=== PATIENT | male | born 1960 | race Caucasian/White ===

== ENCOUNTER 2018-05-31 12:19 | Observation (INO) ==
[2018-05-31] MEDS ORDERED: methylPREDNISolone SOD SUC 125 MG/2 ML VIAL IV STA (12:54)
[2018-05-31] MEDS ORDERED: ONDANSETRON 4 MG/2 ML VIAL IV STA (12:54)
[2018-05-31] MEDS ORDERED: MORPHINE 4 MG/1 ML VIAL IV STA (12:54)
[2018-05-31] MEDS ORDERED: ALBUTEROL NEB SOLN 5 MG/ML 20 ML/BOTTLE RESP TX SCH (13:00)
[2018-05-31 13:12] LABS: Basophils % 0.8 % (0.0-0.8); Eosinophils # 0.1 10*3/uL (0.0-0.87); Hematocrit 26.7 VOL% (42.0-52.0); Hemoglobin 8.8 GM/DL (14.0-18.0); Immature Granulocytes % 0.4 %; Immature Granulocytes Absolute 0.01 #; Lymphocytes # 0.3 10*3/uL (1.4-4.0); Lymphocytes % 13.1 % (21.2-54.2); Mean Corpuscular Hemoglobin 31 PG (27-34); Mean Platelet Volume 9.5 FL (9.6-12.0); Monocytes # 0.5 10*3/uL (0.11-0.8); Monocytes % 20.3 % (1.7-12.7); Neutrophils # 1.5 10*3/uL (1.4-7.4); Neutrophils % 61.4 % (38.7-73.9); Platelet Count 104 T/CUMM (130-400); Red Blood Count 2.84 MC/CUMM (3.8-5.5); Red Cell Distribution Width 13.5 % (9.3-17.3); White Blood Count 2.5 T/CUMM (4-12)
[2018-05-31 13:16] LABS: PT Patient Result 10.6 SECS
[2018-05-31 13:26] LABS: Alanine Aminotransferase < 9 U/L (16-61); Albumin 3.2 G/DL (3.4-5.0); Alkaline Phosphatase 124 U/L (45-117); Aspartate Amino Transferase 21 U/L (0-37); Blood Urea Nitrogen 65 MG/DL (7-18); Calcium 8.6 MG/DL (8.5-10.1); Glucose 85 MG/DL (74-106); Osmolality,Calculated 287.1 MOS/KG (273-304); Potassium 5.7 MMOL/L (3.5-5.1); Sodium 135 MMOL/L (136-145)
[2018-05-31 14:24] LABS: Eosinophils 4 % (0-10); Lymphocytes 13 % (20-55); Platelet Estimate Decreased; Segmented Neutrophils 65 % (50-85); Total Cells Counted 100
[2018-05-31] MEDS ORDERED: ONDANSETRON 4 MG/2 ML VIAL IV PRN (15:43)
[2018-05-31] MEDS ORDERED: ALBUTEROL/IPRATROPIUM 3 ML NEB RESP TX PRN (15:43)
[2018-05-31] MEDS ORDERED: ACETAMINOPHEN 325 MG TABLET PO PRN (15:43)
[2018-05-31] MEDS ORDERED: SODIUM CHLORIDE 0.9% 1,000 ML IV SCH (15:43)
[2018-05-31] MEDS ORDERED: MORPHINE 4 MG/1 ML VIAL IV PRN (15:43)
[2018-05-31] MEDS: CALCIUM ACETATE 667 MG CAPSULE PO SCH ×2 (16:03→21:53)
[2018-05-31] MEDS: CLINDAMYCIN 300 MG CAPSULE PO SCH (16:03)
[2018-05-31] MEDS ORDERED: cloNIDine 0.1 MG TABLET PO PRN (17:02)
[2018-05-31] MEDS: CARBIDOPA/LEVODOPA 25-100 MG TABLET PO SCH ×2 (17:02→21:53)
[2018-05-31 20:21] LABS: Hypochromasia 1+; Ovalocytes Few
[2018-05-31 20:22] LABS: Anisocytosis 1+
[2018-05-31] MEDS: DOCUSATE SODIUM 100 MG CAPSULE PO SCH (21:53)
[2018-06-01] MEDS: CLINDAMYCIN 300 MG CAPSULE PO SCH ×4 (00:02→23:14)
[2018-06-01 04:24] LABS: Hematocrit 26.5 VOL% (42.0-52.0); Hemoglobin 8.7 GM/DL (14.0-18.0); Lymphocytes # 0.2 10*3/uL (1.4-4.0); Lymphocytes % 10.4 % (21.2-54.2); Mean Corpuscular HGB Conc 32.8 GM/DL (32-36); Mean Corpuscular Hemoglobin 31 PG (27-34); Mean Corpuscular Volume 94.3 FL (87-102); Mean Platelet Volume 9.8 FL (9.6-12.0); Neutrophils # 1.8 10*3/uL (1.4-7.4); Neutrophils % 87.6 % (38.7-73.9); Red Blood Count 2.81 MC/CUMM (3.8-5.5); Red Cell Distribution Width 12.9 % (9.3-17.3)
[2018-06-01 04:27] LABS: Platelet Count 95 T/CUMM (130-400)
[2018-06-01 05:02] LABS: Alanine Aminotransferase < 9 U/L (16-61); Albumin 3.1 G/DL (3.4-5.0); Alkaline Phosphatase 127 U/L (45-117); Aspartate Amino Transferase 18 U/L (0-37); Blood Urea Nitrogen 75 MG/DL (7-18); Calcium 8.8 MG/DL (8.5-10.1); Glucose 145 MG/DL (74-106); Osmolality,Calculated 290.4 MOS/KG (273-304); Sodium 133 MMOL/L (136-145); Total Protein 6.4 G/DL (6.4-8.3)
[2018-06-01 05:08] LABS: Platelet Estimate Decreased
[2018-06-01 05:09] LABS: Polychromasia Few
[2018-06-01 05:13] LABS: Potassium 6.6 MMOL/L (3.5-5.1)
[2018-06-01] MEDS ORDERED: PANTOPRAZOLE 40 MG TABLET PO SCH (09:00)
[2018-06-01] MEDS: DOCUSATE SODIUM 100 MG CAPSULE PO SCH ×2 (09:44→21:10)
[2018-06-01] MEDS: PANTOPRAZOLE 40 MG TABLET PO SCH (09:44)
[2018-06-01] MEDS: CARBIDOPA/LEVODOPA 25-100 MG TABLET PO SCH ×4 (09:44→21:11)
[2018-06-01] MEDS: CALCIUM ACETATE 667 MG CAPSULE PO SCH ×3 (09:44→21:11)
[2018-06-01 14:26] LABS: Hepatitis B Surface Ab Result Negative; Hepatitis B Surface Ag Quant < 0.10 Index; Hepatitis B Surface Ag Result Negative (Negative)
[2018-06-01] MEDS ORDERED: HEPARIN 10,000 UNIT/10 ML VIAL IV PRN (15:50)
[2018-06-02] MEDS: BENZONATATE 100 MG CAPSULE PO SCH ×3 (02:35→20:26)
[2018-06-02] MEDS: ALBUTEROL/IPRATROPIUM 3 ML NEB RESP TX SCH ×2 (06:57→19:00)
[2018-06-02 09:41] LABS: Basophils % 0.4 % (0.0-0.8); Eosinophils % 0.8 % (0.00-10.9); Hematocrit 28.2 VOL% (42.0-52.0); Hemoglobin 9.1 GM/DL (14.0-18.0); Immature Granulocytes % 0.6 %; Immature Granulocytes Absolute 0.03 #; Lymphocytes # 0.4 10*3/uL (1.4-4.0); Lymphocytes % 7.6 % (21.2-54.2); Mean Corpuscular HGB Conc 32.3 GM/DL (32-36); Mean Corpuscular Hemoglobin 31 PG (27-34); Mean Corpuscular Volume 95.9 FL (87-102); Mean Platelet Volume 9.6 FL (9.6-12.0); Monocytes # 0.5 10*3/uL (0.11-0.8); Monocytes % 9.5 % (1.7-12.7); Neutrophils # 4.3 10*3/uL (1.4-7.4); Neutrophils % 81.1 % (38.7-73.9); Platelet Count 114 T/CUMM (130-400); Red Blood Count 2.94 MC/CUMM (3.8-5.5); Red Cell Distribution Width 13.5 % (9.3-17.3); White Blood Count 5.2 T/CUMM (4-12)
[2018-06-02 09:56] LABS: Calcium 8.6 MG/DL (8.5-10.1); Osmolality,Calculated 286.1 MOS/KG (273-304); Potassium 4.9 MMOL/L (3.5-5.1)
[2018-06-02] MEDS: CARBIDOPA/LEVODOPA 25-100 MG TABLET PO SCH ×4 (10:31→20:26)
[2018-06-02] MEDS: CALCIUM ACETATE 667 MG CAPSULE PO SCH ×3 (10:31→20:26)
[2018-06-02] MEDS: DOCUSATE SODIUM 100 MG CAPSULE PO SCH ×2 (10:31→20:26)
[2018-06-02] MEDS: CLINDAMYCIN 300 MG CAPSULE PO SCH ×3 (10:31→23:51)
[2018-06-02] MEDS: PANTOPRAZOLE 40 MG TABLET PO SCH (10:31)
[2018-06-02] MEDS: SKIN HEALING OINT (AQUAPHOR) 50 GM TUBE TOP SCH (12:18)
[2018-06-02] MEDS: BUDESONIDE/FORMOTEROL 160-4.5 INHALER 6 GM INH SCH ×2 (13:29→20:26)
[2018-06-02] MEDS ORDERED: guaiFENesin 200 MG/10 ML UDCUP PO PRN (21:40)
[2018-06-03] MEDS: ALBUTEROL/IPRATROPIUM 3 ML NEB RESP TX SCH (07:15)
[2018-06-03] MEDS: DOCUSATE SODIUM 100 MG CAPSULE PO SCH (09:39)
[2018-06-03] MEDS: CALCIUM ACETATE 667 MG CAPSULE PO SCH ×2 (09:39→14:01)
[2018-06-03] MEDS: BENZONATATE 100 MG CAPSULE PO SCH (09:39)
[2018-06-03] MEDS: PANTOPRAZOLE 40 MG TABLET PO SCH (09:39)
[2018-06-03] MEDS: CARBIDOPA/LEVODOPA 25-100 MG TABLET PO SCH ×3 (09:39→17:50)
[2018-06-03] MEDS: CLINDAMYCIN 300 MG CAPSULE PO SCH ×2 (09:39→17:50)
[2018-06-03] MEDS: BUDESONIDE/FORMOTEROL 160-4.5 INHALER 6 GM INH SCH (09:40)
[2018-06-03] MEDS: SKIN HEALING OINT (AQUAPHOR) 50 GM TUBE TOP SCH (09:40)
[2018-06-03] MEDS ORDERED: cefTRIAXone 1,000 MG in SYRINGE 1 EACH IV ONE (14:00)
[2018-06-03] MEDS: guaiFENesin/CODEINE 5 ML LIQUID PO PRN ×2 (14:00→17:50)
[2018-06-03 17:53] VITALS: BP 92/55
== END 2018-06-03 17:52 | disposition home health service (06) ==
LOC: EDUNIT# → EDBD → N.EDINP 12:19 → N.ED 12:19 → N.3E 15:03
PROVIDERS: ADMIT Family Medicine; ATTEND Family Medicine

== ENCOUNTER 2018-12-18 18:56 | Inpatient (IN) ==
[2018-12-18 20:38] LABS: Basophils % 0.7 % (0.0-0.8); Eosinophils # 0.1 10*3/uL (0.0-0.87); Eosinophils % 2.6 % (0.00-10.9); Hematocrit 30.7 VOL% (42.0-52.0); Hemoglobin 9.7 GM/DL (14.0-18.0); Immature Granulocytes % 0.4 %; Immature Granulocytes Absolute 0.01 #; Lymphocytes # 0.7 10*3/uL (1.4-4.0); Mean Corpuscular HGB Conc 31.6 GM/DL (32-36); Mean Corpuscular Volume 98.7 FL (87-102); Mean Platelet Volume 8.9 FL (9.6-12.0); Monocytes % 18.5 % (1.7-12.7); Neutrophils % 53.8 % (38.7-73.9); Platelet Count 105 T/CUMM (130-400); Red Blood Count 3.11 MC/CUMM (3.8-5.5); Red Cell Distribution Width 14.6 % (9.3-17.3); White Blood Count 2.7 T/CUMM (4-12)
[2018-12-18 20:59] LABS: Alanine Aminotransferase < 9 U/L (16-61); Albumin 3.1 G/DL (3.4-5.0); Alkaline Phosphatase 100 U/L (45-117); Aspartate Amino Transferase 16 U/L (0-37); Blood Urea Nitrogen 18 MG/DL (7-18); Calcium 9.8 MG/DL (8.5-10.1); Glucose 112 MG/DL (74-106); Osmolality,Calculated 277.7 MOS/KG (273-304); Total Protein 6.6 G/DL (6.4-8.3)
[2018-12-18 22:18] LABS: Eosinophils 5 % (0-10); Lymphocytes 31 % (20-55); Segmented Neutrophils 54 % (50-85); Total Cells Counted 100
[2018-12-18 22:19] LABS: Anisocytosis 1+; Hypochromasia 1+; Microcytosis 1+; Platelet Estimate Decreased; Polychromasia 1+
[2018-12-18] MEDS ORDERED: VANCOMYCIN INJ 1,000 MG in SODIUM CHLORIDE 0.9% 250 ML IV STA (22:54)
[2018-12-18] MEDS ORDERED: ONDANSETRON 4 MG/2 ML VIAL IV PRN (22:55)
[2018-12-19 01:53] LABS: Basophils % 1.2 % (0.0-0.8); Eosinophils # 0.1 10*3/uL (0.0-0.87); Eosinophils % 2.9 % (0.00-10.9); Hematocrit 29.4 VOL% (42.0-52.0); Hemoglobin 9.5 GM/DL (14.0-18.0); Immature Granulocytes % 0.4 %; Immature Granulocytes Absolute 0.01 #; Lymphocytes # 0.5 10*3/uL (1.4-4.0); Lymphocytes % 20.9 % (21.2-54.2); Mean Corpuscular HGB Conc 32.3 GM/DL (32-36); Mean Platelet Volume 9.3 FL (9.6-12.0); Monocytes % 18.4 % (1.7-12.7); Neutrophils % 56.2 % (38.7-73.9); Platelet Count 106 T/CUMM (130-400); Red Blood Count 2.94 MC/CUMM (3.8-5.5); Red Cell Distribution Width 14.5 % (9.3-17.3); White Blood Count 2.4 T/CUMM (4-12)
[2018-12-19 02:14] LABS: Bilirubin,Total 0.6 MG/DL (0.2-1.0); Calcium 9.6 MG/DL (8.5-10.1); Osmolality,Calculated 283.4 MOS/KG (273-304); Total Protein 6.2 G/DL (6.4-8.3)
[2018-12-19 03:04] LABS: Anisocytosis 1+; Band Neutrophils 1 % (0-10); Eosinophils 3 % (0-10); Hypochromasia 1+; Lymphocytes 21 % (20-55); Microcytosis 1+; Platelet Estimate Decreased; Segmented Neutrophils 66 % (50-85); Smudge Cells Few; Total Cells Counted 100
[2018-12-19] MEDS ORDERED: VANCOMYCIN INJ 1,000 MG in SODIUM CHLORIDE 0.9% 250 ML IV PRN (16:00)
[2018-12-20 05:27] LABS: Basophils % 0.6 % (0.0-0.8); Eosinophils # 0.1 10*3/uL (0.0-0.87); Hematocrit 29.3 VOL% (42.0-52.0); Hemoglobin 9.3 GM/DL (14.0-18.0); Immature Granulocytes % 0.3 %; Immature Granulocytes Absolute 0.01 #; Lymphocytes # 0.6 10*3/uL (1.4-4.0); Lymphocytes % 18.2 % (21.2-54.2); Mean Corpuscular HGB Conc 31.7 GM/DL (32-36); Mean Platelet Volume 9.3 FL (9.6-12.0); Monocytes % 14.2 % (1.7-12.7); Neutrophils % 62.7 % (38.7-73.9); Platelet Count 111 T/CUMM (130-400); Red Blood Count 2.96 MC/CUMM (3.8-5.5); Red Cell Distribution Width 14.5 % (9.3-17.3); White Blood Count 3.3 T/CUMM (4-12)
[2018-12-20] MEDS ORDERED: VANCOMYCIN INJ 750 MG in SODIUM CHLORIDE 0.9% 250 ML IV PRN (08:38)
[2018-12-20] MEDS ORDERED: VANCOMYCIN INJ 1,000 MG in SODIUM CHLORIDE 0.9% 250 ML IV ONE (09:00)
[2018-12-20] MEDS ORDERED: TETANUS IMMUNE GLOBULIN 250 UNIT SYRINGE IM ONE (13:20)
[2018-12-20] MEDS ORDERED: cloNIDine 0.1 MG TABLET PO PRN (15:58)
[2018-12-20] MEDS ORDERED: ALBUTEROL/IPRATROPIUM 3 ML NEB RESP TX PRN (15:58)
[2018-12-20] MEDS: CARBIDOPA/LEVODOPA 25-100 MG TABLET PO SCH ×2 (16:05→23:46)
[2018-12-20] MEDS: BUDESONIDE/FORMOTEROL 160-4.5 INHALER 6 GM INH SCH (23:45)
[2018-12-20] MEDS: CALCIUM ACETATE 667 MG CAPSULE PO SCH (23:46)
[2018-12-20] MEDS: MENTHOL/ZINC OXIDE OINT 71 GM JAR TOP SCH (23:46)
[2018-12-21 05:05] LABS: Basophils # 0.1 10*3/uL (0.0-0.2); Basophils % 1.4 % (0.0-0.8); Eosinophils # 0.1 10*3/uL (0.0-0.87); Hematocrit 29.1 VOL% (42.0-52.0); Hemoglobin 9.3 GM/DL (14.0-18.0); Immature Granulocytes % 0.6 %; Immature Granulocytes Absolute 0.02 #; Lymphocytes # 0.6 10*3/uL (1.4-4.0); Lymphocytes % 16.5 % (21.2-54.2); Mean Corpuscular Volume 98.3 FL (87-102); Mean Platelet Volume 9.7 FL (9.6-12.0); Monocytes % 13.3 % (1.7-12.7); Neutrophils % 64.2 % (38.7-73.9); Platelet Count 121 T/CUMM (130-400); Red Blood Count 2.96 MC/CUMM (3.8-5.5); Red Cell Distribution Width 14.2 % (9.3-17.3); White Blood Count 3.5 T/CUMM (4-12)
[2018-12-21 05:35] LABS: Hypochromasia 1+; Ovalocytes Slight; Platelet Estimate Decreased
[2018-12-21 05:36] LABS: Microcytosis Slight
[2018-12-21] MEDS: CALCIUM ACETATE 667 MG CAPSULE PO SCH ×3 (08:05→21:45)
[2018-12-21] MEDS: MENTHOL/ZINC OXIDE OINT 71 GM JAR TOP SCH ×2 (08:05→21:46)
[2018-12-21] MEDS: CARBIDOPA/LEVODOPA 25-100 MG TABLET PO SCH ×4 (08:05→21:46)
[2018-12-21] MEDS: PANTOPRAZOLE 40 MG TABLET PO SCH (08:05)
[2018-12-21] MEDS: BUDESONIDE/FORMOTEROL 160-4.5 INHALER 6 GM INH SCH ×2 (08:06→21:46)
[2018-12-21] MEDS ORDERED: LIDOCAINE 1% 20 ML VIAL ONE (11:12)
[2018-12-21] MEDS ORDERED: fentaNYL 100 MCG/2 ML VIAL ONE (12:10)
[2018-12-21] MEDS ORDERED: PROPOFOL 200 MG/20 ML VIAL IV ONE (12:10)
[2018-12-21] MEDS ORDERED: MIDAZOLAM 2 MG/2 ML VIAL ONE (12:11)
[2018-12-21] MEDS ORDERED: SODIUM CHLORIDE 0.9% 100 ML IV ONE (12:11)
[2018-12-21] MEDS ORDERED: HEPARIN 10,000 UNIT/10 ML VIAL IV SCH (15:00)
[2018-12-21] MEDS ORDERED: VANCOMYCIN INJ 750 MG in SODIUM CHLORIDE 0.9% 250 ML IV ONE (17:00)
[2018-12-22] MEDS: ACETAMINOPHEN 325 MG TABLET PO PRN ×2 (02:13→16:47)
[2018-12-22 05:08] LABS: Basophils % 1.4 % (0.0-0.8); Eosinophils # 0.1 10*3/uL (0.0-0.87); Eosinophils % 4.8 % (0.00-10.9); Hematocrit 29.7 VOL% (42.0-52.0); Hemoglobin 9.5 GM/DL (14.0-18.0); Immature Granulocytes % 0.3 %; Immature Granulocytes Absolute 0.01 #; Lymphocytes # 0.5 10*3/uL (1.4-4.0); Mean Platelet Volume 9.2 FL (9.6-12.0); Monocytes % 14.6 % (1.7-12.7); Neutrophils % 62.9 % (38.7-73.9); Platelet Count 124 T/CUMM (130-400); Red Cell Distribution Width 14.3 % (9.3-17.3); White Blood Count 2.9 T/CUMM (4-12)
[2018-12-22 05:33] LABS: Calcium 9.8 MG/DL (8.5-10.1); Osmolality,Calculated 294.1 MOS/KG (273-304)
[2018-12-22] MEDS: CARBIDOPA/LEVODOPA 25-100 MG TABLET PO SCH ×4 (08:24→20:47)
[2018-12-22] MEDS: CALCIUM ACETATE 667 MG CAPSULE PO SCH ×3 (08:24→16:47)
[2018-12-22] MEDS: BUDESONIDE/FORMOTEROL 160-4.5 INHALER 6 GM INH SCH ×2 (08:25→20:46)
[2018-12-22] MEDS: PANTOPRAZOLE 40 MG TABLET PO SCH (08:25)
[2018-12-22] MEDS: MENTHOL/ZINC OXIDE OINT 71 GM JAR TOP SCH ×2 (08:25→20:47)
[2018-12-23] MEDS: PANTOPRAZOLE 40 MG TABLET PO SCH (09:01)
[2018-12-23] MEDS: MENTHOL/ZINC OXIDE OINT 71 GM JAR TOP SCH ×2 (09:01→21:28)
[2018-12-23] MEDS: CARBIDOPA/LEVODOPA 25-100 MG TABLET PO SCH ×4 (09:01→21:28)
[2018-12-23] MEDS: CALCIUM ACETATE 667 MG CAPSULE PO SCH ×3 (09:01→17:12)
[2018-12-23] MEDS: BUDESONIDE/FORMOTEROL 160-4.5 INHALER 6 GM INH SCH ×2 (13:43→21:28)
[2018-12-23] MEDS ORDERED: TUBERCULIN SKIN TEST 0.1 ML SYRINGE INTRADERM ONE (17:00)
[2018-12-23] MEDS ORDERED: VANCOMYCIN INJ 750 MG in SODIUM CHLORIDE 0.9% 250 ML IV ONE (17:00)
[2018-12-24 07:24] LABS: Basophils % 1.1 % (0.0-0.8); Eosinophils # 0.1 10*3/uL (0.0-0.87); Eosinophils % 4.4 % (0.00-10.9); Hematocrit 29.2 VOL% (42.0-52.0); Hemoglobin 9.3 GM/DL (14.0-18.0); Immature Granulocytes % 0.7 %; Immature Granulocytes Absolute 0.02 #; Lymphocytes # 0.6 10*3/uL (1.4-4.0); Lymphocytes % 23.3 % (21.2-54.2); Mean Corpuscular HGB Conc 31.8 GM/DL (32-36); Mean Platelet Volume 9.2 FL (9.6-12.0); Monocytes % 14.4 % (1.7-12.7); Neutrophils % 56.1 % (38.7-73.9); Platelet Count 114 T/CUMM (130-400); Red Blood Count 2.95 MC/CUMM (3.8-5.5); White Blood Count 2.7 T/CUMM (4-12)
[2018-12-24 07:55] LABS: Osmolality,Calculated 294.1 MOS/KG (273-304)
[2018-12-24] MEDS: PANTOPRAZOLE 40 MG TABLET PO SCH (08:12)
[2018-12-24] MEDS: BUDESONIDE/FORMOTEROL 160-4.5 INHALER 6 GM INH SCH (08:12)
[2018-12-24] MEDS: MENTHOL/ZINC OXIDE OINT 71 GM JAR TOP SCH (08:12)
[2018-12-24] MEDS: CALCIUM ACETATE 667 MG CAPSULE PO SCH ×3 (08:12→12:00)
[2018-12-24] MEDS: CARBIDOPA/LEVODOPA 25-100 MG TABLET PO SCH ×2 (08:12→12:01)
[2018-12-24 08:47] VITALS: BP 154/62
[2018-12-24] MEDS: CLINDAMYCIN 300 MG CAPSULE PO SCH ×2 (09:28→12:01)
[2018-12-24] MEDS ORDERED: SODIUM POLYSTYRENE SULFATE 15 GM/60 ML BOTTLE PO STA (11:39)
== END 2018-12-24 14:44 | disposition home health service (06) | DRG 570 ==
LOC: N.ED 18:56 → N.EDINP 22:54 → N.5E 23:27
PROVIDERS: ADMIT Family Medicine; ATTEND Family Medicine

== ENCOUNTER 2020-12-15 19:25 | Inpatient (IN) ==
[2020-12-15 21:49] LABS: Basophils % 0.9 % (0.0-0.8); Eosinophils # 0.1 10*3/uL (0.0-0.87); Eosinophils % 2.7 % (0.00-10.9); Hematocrit 28.8 VOL% (42.0-52.0); Hemoglobin 9.2 GM/DL (14.0-18.0); Immature Granulocytes % 0.3 %; Immature Granulocytes Absolute 0.01 #; Lymphocytes # 0.5 10*3/uL (1.4-4.0); Lymphocytes % 15.2 % (21.2-54.2); Mean Corpuscular HGB Conc 31.9 GM/DL (32-36); Mean Corpuscular Volume 100.7 FL (87-102); Mean Platelet Volume 9.7 FL (9.6-12.0); Monocytes % 12.5 % (1.7-12.7); Neutrophils % 68.4 % (38.7-73.9); Platelet Count 132 T/CUMM (130-400); Red Blood Count 2.86 MC/CUMM (3.8-5.5); Red Cell Distribution Width 13.5 % (9.3-17.3); White Blood Count 3.4 T/CUMM (4-12)
[2020-12-15 22:02] LABS: Albumin 3.1 G/DL (3.4-5.0); Bilirubin,Total 0.5 MG/DL (0.20-1.00); Calcium 8.6 MG/DL (8.5-10.1); Osmolality,Calculated 285.4 MOS/KG (273-304); Potassium 4.3 MMOL/L (3.5-5.1); Total Protein 6.3 G/DL (6.4-8.2)
[2020-12-15] MEDS ORDERED: VANCOMYCIN INJ 1,000 MG in SODIUM CHLORIDE 0.9% 250 ML IV STA (22:37)
[2020-12-15] MEDS ORDERED: MEROPENEM 500 MG in SODIUM CHLORIDE 0.9% 100 ML IV STA (22:40)
[2020-12-15] MEDS ORDERED: MEROPENEM 1,000 MG VIAL ONE (23:29)
[2020-12-16] MEDS ORDERED: ACETAMINOPHEN 500 MG TABLET PO PRN (01:50)
[2020-12-16] MEDS ORDERED: ONDANSETRON 4 MG/2 ML VIAL IV PRN (11:50)
[2020-12-16] MEDS ORDERED: MAGNESIUM HYDROXIDE SUSP 30 ML UDCUP PO PRN (11:50)
[2020-12-16] MEDS ORDERED: ACETAMINOPHEN 325 MG TABLET PO PRN (11:50)
[2020-12-16] MEDS: CARBIDOPA/LEVODOPA 25-100 MG TABLET PO SCH ×3 (12:52→22:25)
[2020-12-16] MEDS ORDERED: VANCOMYCIN INJ 1,500 MG in SODIUM CHLORIDE 0.9% 500 ML IV ONE (14:00)
[2020-12-16] MEDS: methylPREDNISolone SOD SUC 40 MG/1 ML VIAL IV SCH (14:36)
[2020-12-16] MEDS: ALBUTEROL/IPRATROPIUM 3 ML NEB RESP TX SCH ×3 (15:40→23:57)
[2020-12-16] MEDS: INSULIN LISPRO 100 UNIT/ML SUBCUT SCH ×2 (16:47→22:25)
[2020-12-16] MEDS: CALCIUM ACETATE 667 MG CAPSULE PO SCH ×2 (16:50→22:25)
[2020-12-16] MEDS ORDERED: FAMOTIDINE 20 MG TABLET PO SCH (21:00)
[2020-12-16] MEDS: MEROPENEM 500 MG in SODIUM CHLORIDE 0.9% 100 ML IV SCH (22:22)
[2020-12-16] MEDS: BUDESONIDE/FORMOTEROL 160-4.5 INHALER 6 GM INH SCH (22:26)
[2020-12-17] MEDS: methylPREDNISolone SOD SUC 40 MG/1 ML VIAL IV SCH ×2 (00:35→17:18)
[2020-12-17] MEDS: ALBUTEROL/IPRATROPIUM 3 ML NEB RESP TX SCH ×6 (03:15→22:20)
[2020-12-17 05:30] LABS: Basophils % 0.4 % (0.0-0.8); Eosinophils % 0.4 % (0.00-10.9); Hematocrit 28.9 VOL% (42.0-52.0); Hemoglobin 9.1 GM/DL (14.0-18.0); Immature Granulocytes % 0.4 %; Immature Granulocytes Absolute 0.01 #; Lymphocytes # 0.4 10*3/uL (1.4-4.0); Lymphocytes % 15.4 % (21.2-54.2); Mean Corpuscular HGB Conc 31.5 GM/DL (32-36); Mean Corpuscular Volume 103.6 FL (87-102); Mean Platelet Volume 10.5 FL (9.6-12.0); Monocytes % 3.5 % (1.7-12.7); Neutrophils % 79.9 % (38.7-73.9); Platelet Count 116 T/CUMM (130-400); Red Blood Count 2.79 MC/CUMM (3.8-5.5); Red Cell Distribution Width 13.2 % (9.3-17.3); White Blood Count 2.3 T/CUMM (4-12)
[2020-12-17 05:50] LABS: Calcium 8.2 MG/DL (8.5-10.1); Osmolality,Calculated 291.7 MOS/KG (273-304); Risk Ratio 3.88
[2020-12-17 07:03] LABS: Microcytosis 2+; Platelet Estimate Decreased
[2020-12-17] MEDS: INSULIN REGULAR 100 UNIT/ML IV ONE ×2 (08:03→10:23)
[2020-12-17] MEDS: CARBIDOPA/LEVODOPA 25-100 MG TABLET PO SCH ×4 (08:04→21:39)
[2020-12-17] MEDS: CALCIUM ACETATE 667 MG CAPSULE PO SCH ×3 (08:04→17:18)
[2020-12-17] MEDS: DEXTROSE 50% 25 GM/50 ML VIAL IV ONE ×2 (08:04→10:23)
[2020-12-17] MEDS: PANTOPRAZOLE 40 MG TABLET PO SCH (08:04)
[2020-12-17] MEDS: SODIUM POLYSTYRENE SULFATE 15 GM/60 ML BOTTLE PO SCH ×2 (08:04→15:16)
[2020-12-17] MEDS: INSULIN LISPRO 100 UNIT/ML SUBCUT SCH ×4 (08:05→22:27)
[2020-12-17] MEDS: CALCIUM CHLORIDE 1,000 MG in SODIUM CHLORIDE 0.9% 100 ML IV ONE ×2 (08:05→10:23)
[2020-12-17] MEDS: BUDESONIDE/FORMOTEROL 160-4.5 INHALER 6 GM INH SCH ×2 (10:14→22:27)
[2020-12-17] MEDS ORDERED: HEPARIN 10,000 UNIT/10 ML VIAL IV ONE (13:00)
[2020-12-17] MEDS ORDERED: VANCOMYCIN INJ 750 MG in SODIUM CHLORIDE 0.9% 250 ML IV ONE (17:00)
[2020-12-17] MEDS ORDERED: VANCOMYCIN INJ 750 MG in SODIUM CHLORIDE 0.9% 250 ML IV PRN (18:00)
[2020-12-17] MEDS: MEROPENEM 500 MG in SODIUM CHLORIDE 0.9% 100 ML IV SCH (21:38)
[2020-12-18] MEDS: methylPREDNISolone SOD SUC 40 MG/1 ML VIAL IV SCH ×2 (00:33→11:51)
[2020-12-18] MEDS: SODIUM POLYSTYRENE SULFATE 15 GM/60 ML BOTTLE PO SCH ×2 (00:33→08:01)
[2020-12-18] MEDS: ALBUTEROL/IPRATROPIUM 3 ML NEB RESP TX SCH ×5 (02:00→19:39)
[2020-12-18 05:35] LABS: Hematocrit 29.9 VOL% (42.0-52.0); Hemoglobin 9.5 GM/DL (14.0-18.0); Immature Granulocytes % 0.4 %; Immature Granulocytes Absolute 0.02 #; Lymphocytes # 0.7 10*3/uL (1.4-4.0); Lymphocytes % 12.8 % (21.2-54.2); Mean Corpuscular HGB Conc 31.8 GM/DL (32-36); Mean Corpuscular Volume 100.3 FL (87-102); Mean Platelet Volume 10.2 FL (9.6-12.0); Neutrophils % 77.8 % (38.7-73.9); Platelet Count 141 T/CUMM (130-400); Red Blood Count 2.98 MC/CUMM (3.8-5.5); Red Cell Distribution Width 13.2 % (9.3-17.3); White Blood Count 5.3 T/CUMM (4-12)
[2020-12-18 06:04] LABS: Alanine Aminotransferase < 9 U/L (16-61); Albumin 2.9 G/DL (3.4-5.0); Alkaline Phosphatase 77 U/L (45-117); Aspartate Amino Transferase 15 U/L (0-37); Blood Urea Nitrogen 35 MG/DL (7-18); Calcium 8.6 MG/DL (8.5-10.1); Carbon Dioxide 27 MMOL/L (21-32); Estimated Glom Filtration Rate 11 ML/MIN; Glucose 134 MG/DL (74-106); Osmolality,Calculated 284.7 MOS/KG (273-304); Potassium 4.3 MMOL/L (3.5-5.1); Sodium 138 MMOL/L (136-145)
[2020-12-18] MEDS: INSULIN LISPRO 100 UNIT/ML SUBCUT SCH ×4 (08:01→21:32)
[2020-12-18] MEDS: PANTOPRAZOLE 40 MG TABLET PO SCH (08:06)
[2020-12-18] MEDS: CARBIDOPA/LEVODOPA 25-100 MG TABLET PO SCH ×5 (08:06→21:09)
[2020-12-18] MEDS: CALCIUM ACETATE 667 MG CAPSULE PO SCH ×3 (08:06→16:54)
[2020-12-18] MEDS: BUDESONIDE/FORMOTEROL 160-4.5 INHALER 6 GM INH SCH ×2 (10:12→21:09)
[2020-12-18] MEDS: MEROPENEM 500 MG in SODIUM CHLORIDE 0.9% 100 ML IV SCH (21:04)
[2020-12-19] MEDS: methylPREDNISolone SOD SUC 40 MG/1 ML VIAL IV SCH ×2 (00:43→15:33)
[2020-12-19] MEDS: ALBUTEROL/IPRATROPIUM 3 ML NEB RESP TX SCH ×5 (02:17→14:23)
[2020-12-19 06:28] LABS: Hematocrit 28.6 VOL% (42.0-52.0); Hemoglobin 9.4 GM/DL (14.0-18.0); Immature Granulocytes % 1.1 %; Immature Granulocytes Absolute 0.05 #; Lymphocytes # 0.6 10*3/uL (1.4-4.0); Lymphocytes % 12.6 % (21.2-54.2); Mean Corpuscular HGB Conc 32.9 GM/DL (32-36); Mean Platelet Volume 10.4 FL (9.6-12.0); Monocytes % 3.4 % (1.7-12.7); Neutrophils % 82.9 % (38.7-73.9); Platelet Count 145 T/CUMM (130-400); Red Blood Count 2.86 MC/CUMM (3.8-5.5); Red Cell Distribution Width 13.3 % (9.3-17.3); White Blood Count 4.8 T/CUMM (4-12)
[2020-12-19 07:08] LABS: Alanine Aminotransferase < 6 U/L (16-61); Alkaline Phosphatase 75 U/L (45-117); Aspartate Amino Transferase 15 U/L (0-37); Blood Urea Nitrogen 66 MG/DL (7-18); Calcium 8.8 MG/DL (8.5-10.1); Carbon Dioxide 26 MMOL/L (21-32); Estimated Glom Filtration Rate 7 ML/MIN; Glucose 128 MG/DL (74-106); Sodium 136 MMOL/L (136-145)
[2020-12-19 07:44] VITALS: BP 120/60
[2020-12-19] MEDS: INSULIN LISPRO 100 UNIT/ML SUBCUT SCH ×2 (08:14→12:48)
[2020-12-19] MEDS: CALCIUM ACETATE 667 MG CAPSULE PO SCH ×2 (08:15→15:33)
[2020-12-19] MEDS: CARBIDOPA/LEVODOPA 25-100 MG TABLET PO SCH ×2 (08:15→15:33)
[2020-12-19] MEDS: PANTOPRAZOLE 40 MG TABLET PO SCH (08:15)
[2020-12-19] MEDS: BUDESONIDE/FORMOTEROL 160-4.5 INHALER 6 GM INH SCH (08:17)
== END 2020-12-19 16:00 | disposition home or self-care (01) | DRG 202 ==
LOC: N.ED 19:25 → N.EDINP 12-16 01:50 → N.TELES 12-16 03:01 → N.3E 12-16 18:22
PROVIDERS: ADMIT Family Medicine; ATTEND Family Medicine